=== PATIENT | female | born 1975 | race African-American/Black ===

== ENCOUNTER 2017-03-03 02:22 | Emergency (ER) | payer MEDICAID, OTHER ==
[~2017-03-03] VITALS: Ht 167.6 cm; Wt 82.0 kg
[2017-03-03 04:15] VITALS: BP 100/68
== END 2017-03-03 04:15 | disposition home or self-care (01) ==
LOC: ER 02:30
DX: F10.129 Alcohol abuse with intoxication, unspecified (principal); E11.9 Type 2 diabetes mellitus without complications; F12.10 Cannabis abuse, uncomplicated; Y90.9 Presence of alcohol in blood, level not specified
CPT/HCPCS: 99283; Z7610

== ENCOUNTER 2017-10-16 14:23 | Emergency (ER) | payer MEDICAID, OTHER ==
[~2017-10-16] VITALS: Ht 157.5 cm; Wt 90.0 kg
[2017-10-16] MEDS ORDERED: MORPHINE SULFATE 4 MG/ML CPJ (NOT FOR IM USE) IV STA (19:42)
[2017-10-16] MEDS ORDERED: KETOROLAC 30MG/ML VIAL IV STA (19:42)
[2017-10-16] MEDS ORDERED: SODIUM CHLORIDE 0.9% 1,000 ML IV ONE (19:42)
[2017-10-16] MEDS ORDERED: ONDANSETRON HCL 4MG/2ML VIAL IV STA (19:42)
[2017-10-16 20:28] LABS: BASOPHILS % 0.9 % (0.0-2.0); EOSINOPHILS % 0.5 % (0.0-5.0); HEMATOCRIT. 30.2 % (36.0-48.0); HEMOGLOBIN. 10.1 g/dL (12.0-16.0); LYMPHOCYTES % 31.4 % (20.0-50.0); MEAN CORPUSCULAR HEMOGLOBIN 29.8 pg (28.0-32.0); MEAN CORPUSCULAR VOLUME 89.2 fL (81.0-99.0); MEAN PLATELET VOLUME 7.8 fl (7.4-10.4); MONOCYTES % 7.8 % (2.0-8.0); NEUTROPHILS % 59.4 % (40.0-76.0); PLATELET 239 x1000/uL (130-400); RED BLOOD CELL COUNT 3.39 mill/uL (4.2-5.4); RED CELL DISTRIBUTION WIDTH 13.2 % (11.6-14.6)
[2017-10-16 20:33] LABS: *AMPHETAMINES SCREEN URINE NEGATIVE (NEGATIVE); *BARBITURATES SCREEN URINE NEGATIVE (NEGATIVE); *BENZODIAZEPINES SCREEN URINE NEGATIVE (NEGATIVE); *COCAINE SCREEN URINE NEGATIVE (NEGATIVE)
[2017-10-16 20:34] LABS: METHADONE URINE SCREEN NEGATIVE (NEGATIVE); OPIATES URINE SCREEN NEGATIVE (NEGATIVE); PHENCYCLIDINE URINE SCREEN NEGATIVE (NEGATIVE)
[2017-10-16 20:34] LABS: CHLORIDE 104 mEq/L (98-107); HCG SCREEN NEGATIVE
[2017-10-16 20:35] LABS: CLARITY URINE CLEAR (CLEAR); COLOR URINE YELLOW (YELLOW); KETONES URINE TRACE (NEGATIVE); LEUKOCYTE ESTERASE URINE TRACE (NEGATIVE); NITRITE URINE NEGATIVE (NEGATIVE); OCCULT BLOOD URINE 3+ (NEGATIVE); PH URINE 6.5 (4.5-8.0); PROTEIN URINE 2+ (NEGATIVE); SPECIFIC GRAVITY URINE 1.035 (1.005-1.030); UROBILINOGEN URINE 0.2 E.U./dL (0.2-1.0)
[2017-10-16 20:37] LABS: D-DIMER 0.38 mg/L FEU (<0.50); PROTHROMBIN TIME 9.8 sec (9.1-11.1)
[2017-10-16 20:38] LABS: ETHANOL BLOOD < 10 mg/dL
[2017-10-16 20:39] LABS: CANNABINOID URINE SCREEN PRESUMTIVE POSITIVE (NEGATIVE)
[2017-10-16] MEDS ORDERED: MORPHINE SULFATE 10 MG/ML CPJ IM ONE (21:00)
[2017-10-16] MEDS ORDERED: KETOROLAC 30MG/ML VIAL IM ONE (21:00)
[2017-10-16] MEDS ORDERED: ONDANSETRON 4MG ODT PO ONE (21:00)
[2017-10-16 22:58] VITALS: BP 116/78
== END 2017-10-16 22:53 | disposition home or self-care (01) ==
LOC: ER 14:23
DX: N12 Tubulo-interstitial nephritis, not specified as acute or chronic (principal); R03.0 Elevated blood-pressure reading, without diagnosis of hypertension; E11.9 Type 2 diabetes mellitus without complications; F12.90 Cannabis use, unspecified, uncomplicated
CPT/HCPCS: 36415; 71045; 80053; 80305; 81003; 82962; 83690; 83880; 84484; 84703; 85025; 85379; 85610; 93005; 96372; 99285; G0482; J1885; J2270; J7030; Z7610